=== PATIENT | male | born 1945 | race Caucasian/White ===

== ENCOUNTER → 2018-07-02 | Outpatient (CLI) | payer MEDICARE, OTHER ==
--- NOTE | 2018-07-02 13:01 | Diagnostic Imaging Report ---
INDICATION: Compression fracture. COMPARISON: None. FINDINGS: AP Spine L1-L4: [BMD (g/cm2): 1.191] [T-Score: -0.4] [Z-Score: 0.4] [BMD Previous: N/A] [BMD % Change: N/A] LT Hip Neck: [BMD (g/cm2): 0.617] [T-Score: -3.5] [Z-Score: -2.0] LT Hip Total: [BMD (g/cm2):0.597] [T-Score:-3.5] [Z-Score: -2.5] [BMD Previous: N/A] [BMD % Change: N/A] RT Hip Neck: [BMD (g/cm2):0.577] [T-Score:-3.8] [Z-Score:-2.3] RT Hip Total: [BMD (g/cm2):0.581] [T-score:-3.6] [Z-Score:-2.6] [BMD Previous:N/A] [BMD % Change:N/A] *Indicates significant change from prior examination based on 95% confidence level. World Health Organization criteria for BMD interpretation classify patients as Normal (T-score at or above -1.0), Osteopenic (T-score between -1.0 and -2.5) or Osteoporotic (T-score at or below -2.5). LIMITATIONS AND MODIFICATION: None. FRACTURE RISK (FRAX SCORE): The ten year probability of (%): Major Osteoporotic Fracture: [24.6] Hip Fracture: [13.0] IMPRESSION: 1. Osteoporosis. 2. Baseline examination. 3. See below National Osteoporosis Foundation guidelines on when to potentially initiate pharmacologic therapy. Based on the National Osteoporosis Foundation Guidelines, pharmacologic treatment should be initiated in any of the following, unless clinical conditions suggest otherwise: * Any patient with prior fragility fracture of the hip or vertebrae. A spine fracture indicates 5X risk for subsequent spine fracture and 2X risk for subsequent hip fracture. * Osteoporosis (T-score <-2.5). * Postmenopausal women and men age 50 and older with low bone mass/osteopenia (T-score between -1.0 and -2.5) by DXA and 10-year major osteoporotic fracture greater than 20% or a 10-year probability of hip fracture greater than 3%. These fracture risks are supplied above in the FRAX score, if applicable. * Clinician judgment and/or patient preferences may indicate treatment for people with 10-year fracture probabilities above or below these levels. Dictated by: Dictated on workstation # [id number]
== END ==
LOC: EDUNIT# 11:30 → RAD 11:58
PROVIDERS: ATTEND Family Medicine
DX: M81.0 Age-related osteoporosis without current pathological fracture (principal); M48.50XA Collapsed vertebra, not elsewhere classified, site unspecified, initial encounter for fracture; N18.1 Chronic kidney disease, stage 1
CPT/HCPCS: 77080

== ENCOUNTER 2020-04-10 22:28 | Emergency (ER) | payer MEDICARE, OTHER ==
[~2020-04-10] VITALS: Ht 175.2 cm; Wt 81.6 kg
--- NOTE | 2020-04-10 22:37 | ED Dyspnea ---
General Stated Complaint: SOB/CHEST PAIN History of Present Illness Date Seen by Provider: Apr 10, 2020 Time Seen by Provider: 22:37 Initial Comments 74-year-old male presents with chest pressure and shortness of breath. Patient reports around 3:30 or so he took a bath and sensitivities had some chest pressure. He says some increasing dyspnea especially when laying flat or with exertion. He reports that he's had some increased lower extremity edema and has taken, but extra Lasix but hasn't helped much. Patient reports some chest pressure as substernal. He denies any cough, fevers or chills. Reports that the symptoms worsen throughout the afternoon and evening when he tried to lay down shortness breath got quite a bit worse. He sees a gynecological assistant for high blood pressure in [place]. Allergies and Home Medications Allergies Coded Allergies: minoxidil (Verified Allergy, Unknown, 04/10/20) Patient Home Medication List Home Medication List Reviewed: Yes Review of Systems Review of Systems Constitutional: No chills, No fever EENTM: no symptoms reported Respiratory: No cough; dyspnea on exertion, orthopnea, short of breath; No wheezing Cardiovascular: chest pain, edema Gastrointestinal: No abdominal pain, No diarrhea, No nausea, No vomiting Musculoskeletal: no symptoms reported Skin: no symptoms reported Psychiatric/Neurological: No Symptoms Reported Endocrine: No Symptoms Reported Past Spxsble-Yljnpa-Oqfqep Hx Past Med/Social Hx: Reviewed Nursing Past Med/Soc Hx Patient Social History Recent Foreign Travel: No Contact w/Someone Who Travel: No Physical Exam Vital Signs Vital Signs - First Documented Capillary Refill : Height, Weight, BMI Height: '" Weight: lbs. oz. kg; BMI Method: General Appearance: Mild Distress Respiratory: No Accessory Muscle Use, No Respiratory Distress, Decreased Breath Sounds, Other (mild tachypnea) Cardiovascular: Regular Rate, Rhythm, Normal Peripheral Pulses Peripheral Pulses: 2+ Radial Pulses (R), 2+ Radial Pulses (L) Gastrointestinal: Non Tender, Soft Extremity: Normal Capillary Refill, Pedal Edema (2+ bilateral) Neurologic/Psychiatric: Alert, Oriented x3, No Motor/Sensory Deficits, Normal Mood/Affect, plasterer helper II-XII Norm as Tested Skin: Normal Color, Warm/Dry Focused Exam Lactate Level 04/10/20 23:20: Lactic Acid Level 0.95 Lactic Acid Level Laboratory Tests Test 04/10/20 23:20 Lactic Acid Level 0.95 MMOL/L (0.50-2.00) Progress/Results/Core Measures Results/Orders Lab Results Laboratory Tests Test 04/10/20 22:28 04/10/20 23:20 04/11/20 00:18 Range/Units White Blood Count 20.4 H 4.3-11.0 10^3/uL Red Blood Count 3.16 L 4.35-5.85 10^6/uL Hemoglobin 9.9 L 13.3-17.7 G/DL Hematocrit 28 L 40-54 % Mean Corpuscular Volume 90 80-99 FL Mean Corpuscular Hemoglobin 31 25-34 PG Mean Corpuscular Hemoglobin Concent 35 32-36 G/DL Red Cell Distribution Width 11.8 10.0-14.5 % Platelet Count 265 130-400 10^3/uL Mean Platelet Volume 10.7 H 7.4-10.4 FL Immature Granulocyte % (Auto) 0 % Neutrophils (%) (Auto) 91 H 42-75 % Lymphocytes (%) (Auto) 5 L 12-44 % Monocytes (%) (Auto) 4 0-12 % Eosinophils (%) (Auto) 0 0-10 % Basophils (%) (Auto) 0 0-10 % Neutrophils # (Auto) 18.5 H 1.8-7.8 X 10^3 Lymphocytes # (Auto) 0.9 L 1.0-4.0 X 10^3 Monocytes # (Auto) 0.8 0.0-1.0 X 10^3 Eosinophils # (Auto) 0.0 0.0-0.3 10^3/uL Basophils # (Auto) 0.0 0.0-0.1 10^3/uL Immature Granulocyte # (Auto) 0.1 0.0-0.1 10^3/uL Neutrophils % (Manual) 91 % Lymphocytes % (Manual) 7 % Monocytes % (Manual) 2 % Sodium Level 123 *L 135-145 MMOL/L Potassium Level 4.9 3.6-5.0 MMOL/L Chloride Level 91 L 98-107 MMOL/L Carbon Dioxide Level 16 L 21-32 MMOL/L Anion Gap 16 H 5-14 MMOL/L Blood Urea Nitrogen 68 H 7-18 MG/DL Creatinine 3.66 H 0.60-1.30 MG/DL Estimat Glomerular Filtration Rate 16 BUN/Creatinine Ratio 19 Glucose Level 388 H 70-105 MG/DL Calcium Level 9.1 8.5-10.1 MG/DL Corrected Calcium 9.7 8.5-10.1 MG/DL Magnesium Level 1.5 L 1.6-2.4 MG/DL Total Bilirubin 0.5 0.1-1.0 MG/DL Aspartate Amino Transf (AST/SGOT) 35 H 5-34 U/L Alanine Aminotransferase (ALT/SGPT) 32 0-55 U/L Alkaline Phosphatase 148 H 40-136 U/L Troponin I < 0.30 <0.30 NG/ML C-Reactive Protein 0.13 <0.50 MG/DL Pro-B-Type Natriuretic Peptide 4471.0 H <75.0 PG/ML Total Protein 6.5 6.4-8.2 GM/DL Albumin 3.3 3.2-4.5 GM/DL Lactic Acid Level 0.95 0.50-2.00 MMOL/L Urine Color YELLOW Urine Clarity CLOUDY Urine pH 5.5 5-9 Urine Specific [place] 1.020 1.016-1.022 Urine Protein 2+ H NEGATIVE Urine Glucose (UA) 1+ H NEGATIVE Urine Ketones NEGATIVE NEGATIVE Urine Nitrite NEGATIVE NEGATIVE Urine Bilirubin NEGATIVE NEGATIVE Urine Urobilinogen 0.2 < = 1.0 MG/DL Urine Leukocyte Esterase NEGATIVE NEGATIVE Urine RBC (Auto) 1+ H NEGATIVE Urine RBC 0-2 /HPF Urine WBC 10-25 H /HPF Urine Crystals PRESENT H /LPF Urine Amorphous Sediment LARGE SHEELA URATES H /LPF Urine Bacteria FEW H /HPF Urine Casts NONE /LPF Urine Mucus NEGATIVE /LPF Urine Culture Indicated YES My Orders Orders - SANCHEZ,CATIE L DO Chest 1 View Ap/Pa Only (04/10/20 22:37) Cbc With Automated Diff (04/10/20 22:37) Comprehensive Metabolic Panel (04/10/20 22:37) Magnesium (04/10/20 22:37) Probnp Fs (04/10/20 22:37) Crp Fs (04/10/20 22:37) Ekg Tracing (04/10/20 22:37) O2 (04/10/20 22:37) Monitor-Rhythm Ecg Trace Only (04/10/20 22:37) Nitroglycerin 0.4 Mg Btl 25's (Nitrostat (04/10/20 23:00) Aspirin Chewable Tablet (Baby Aspirin Ch (04/10/20 23:00) Furosemide Injection (Lasix Injection) (04/10/20 23:00) Manual Differential (04/10/20 22:10) Blood Culture (04/10/20 23:09) Lactic Acid Analyzer (04/10/20 23:09) Ceftriaxone For Iv Use (Rocephin For I (04/10/20 23:30) Azithromycin Injection (Zithromax Inject (04/10/20 23:30) Ua Culture If Indicated (04/11/20 00:18) Troponin I Fs (04/11/20 00:26) Urine Culture (04/11/20 00:18) Medications Given in ED Current Medications Medications Dose Ordered Sig/Ariel Route Start Time Stop Time Status Last Admin Dose Admin Azithromycin 500 mg/Sodium Chloride 255 ml @ 250 mls/hr ONCE ONCE IV 04/10/20 23:30 04/11/20 00:31 DC 04/10/20 23:44 250 MLS/HR Ceftriaxone Sodium 1000 mg/ Sterile Water 10 ml @ 200 mls/hr ONCE ONCE IV 04/10/20 23:30 04/10/20 23:32 DC 04/10/20 23:44 200 MLS/HR Furosemide 40 mg ONCE ONCE IVP 04/10/20 23:00 04/10/20 23:01 DC 04/10/20 22:57 40 MG Nitroglycerin 0.4 mg UD PRN SL 04/10/20 23:00 04/10/20 22:57 0.4 MG Vital Signs/I&O 04/10/20 04/10/20 22:28 22:28 Temp 36.9 Pulse 100 Resp 28 B/P (MAP) 171/49 (89) Pulse Ox 94 94 O2 Delivery Nasal Cannula Nasal Cannula O2 Flow Rate 2.00 2.00 04/11/20 00:00 Intake Total 10 ml Balance 10 ml Progress Progress Note : Progress Note Patient with labs and x-rays are consistent with fluid overload. Patient chest pressure resolved with oxygen. His dyspnea resolved with nitroglycerin and Lasix. Patient was feeling significantly better after treatment. He is hyponatremic likely from fluid overload. Patient has an elevated white count, questionable urinary tract infection. I do not suspect pneumonia since his x-ray looks much more consistent with pulmonary edema. I did however treat him with Rocephin and azithromycin. Patient with a negative lactic acid. Patient with EKG shows no acute changes and initial troponin was negative. Patient symptoms were going on approximately 7 hours prior to arrival so that initial troponin would've been approximately 7 hours after symptoms started so unlikely an acute coronary syndrome. Patient did receive aspirin by EMS prior to arrival. Patient requests transfer to [facility] since this is where his gynecological assistant is. Patient was accepted and transferred in stable condition. Initial ECG Impression Date: Apr 10, 2020 Initial ECG Impression Time: 22:47 Initial ECG Rate: 76 Initial ECG Rhythm: Normal Sinus Initial ECG Impression: Nonspecific Changes Comment Sinus Rhythm, HR 76, LVH, no acute findings Departure Impression Primary Impression: Pulmonary edema Qualified Codes: J81.0 - Acute pulmonary edema Additional Impressions: Chronic kidney disease Qualified Codes: N18.9 - Chronic kidney disease, unspecified Hyponatremia with excess extracellular fluid volume Disposition: XFER [facility] Condition: Stable Transfer Transfer Reason: Patient preference Time Spoke to Accepting Phy: 00:20 Transfer Progress Notes Discussed with Dr Cristhian Rivera, who graciously accepted patient Transfer Facility: [facility] Method of Transfer: EMS Departure-Patient Inst. Referrals: JULIETTE ZAFAR MD (PCP/Family) Primary Care Physician CATIE SANCHEZ DO Apr 10, 2020 22:37
[2020-04-10 22:49] LABS: BASOPHILS % (AUTO) 0 % (0-10); EOSINOPHILS % (AUTO) 0 % (0-10); HEMATOCRIT 28 % (40-54); HEMOGLOBIN 9.9 G/DL (13.3-17.7); LYMPHOCYTES # (AUTO) 0.9 X 10^3 (1.0-4.0); LYMPHOCYTES % (AUTO) 5 % (12-44); MEAN CORPUSCULAR HEMOGLOBIN 31 PG (25-34); MEAN CORPUSCULAR HGB CONC 35 G/DL (32-36); MEAN CORPUSCULAR VOLUME 90 FL (80-99); MEAN PLATELET VOLUME 10.7 FL (7.4-10.4); MONOCYTES # (AUTO) 0.8 X 10^3 (0.0-1.0); MONOCYTES % (AUTO) 4 % (0-12); NEUTROPHILS # (AUTO) 18.5 X 10^3 (1.8-7.8); NEUTROPHILS % (AUTO) 91 % (42-75); PLATELET COUNT 265 10^3/uL (130-400); WHITE BLOOD COUNT 20.4 10^3/uL (4.3-11.0)
[2020-04-10] MEDS ORDERED: FUROSEMIDE 40 MG/4 ML INJ (LASIX) IVP ONE (23:00)
[2020-04-10] MEDS ORDERED: ASPIRIN 81 MG CHEW (CHILDREN'S ASA) PO ONE (23:00)
[2020-04-10] MEDS ORDERED: NITROGLYCERIN 0.4 MG SL TABS BTL 25'S SL PRN (23:00)
[2020-04-10 23:09] LABS: CREATININE SERUM 3.66 MG/DL (0.60-1.30); POTASSIUM 4.9 MMOL/L (3.6-5.0)
[2020-04-10 23:10] LABS: ALBUMIN 3.3 GM/DL (3.2-4.5); BILIRUBIN,TOTAL 0.5 MG/DL (0.1-1.0); CALCIUM 9.1 MG/DL (8.5-10.1); MAGNESIUM 1.5 MG/DL (1.6-2.4); TOTAL PROTEIN 6.5 GM/DL (6.4-8.2)
[2020-04-10 23:20] LABS: LYMPHOCYTES % (MANUAL) 7 %; MONOCYTES % (MANUAL) 2 %; NEUTROPHILS % (MANUAL) 91 %
[2020-04-10] MEDS ORDERED: cefTRIAXone FOR IV USE 1,000 MG in WATER (STERILE) FOR INJECTION 10 ML IV ONE (23:30)
[2020-04-10] MEDS ORDERED: AZITHROMYCIN INJECTION 500 MG in NS (IVPB) 250 ML IV ONE (23:30)
[2020-04-11 00:29] LABS: CLARITY,URINE CLOUDY; COLOR,URINE YELLOW
[2020-04-11 00:30] LABS: AMORPHOUS SEDIMENT,UR LARGE AMOR URATES /LPF; BACTERIA,URINE FEW /HPF; BILIRUBIN,URINE NEGATIVE (NEGATIVE); GLUCOSE, URINE (UA) 1+ (NEGATIVE); KETONES,URINE NEGATIVE (NEGATIVE); LEUKOCYTE ESTERASE ,URINE NEGATIVE (NEGATIVE); NITRITE,URINE NEGATIVE (NEGATIVE); PH,URINE 5.5 (5-9); PROTEIN,URINE 2+ (NEGATIVE); RBC,URINE 0-2 /HPF
[2020-04-11 02:10] VITALS: BP 157/57
--- NOTE | 2020-04-11 06:14 | Diagnostic Imaging Report ---
EXAMINATION: Portable AP chest at 1043 PM INDICATION: Dyspnea There are no prior studies available for comparison. The heart is enlarged and the central pulmonary vascularity is prominent. Most likely, there is an element of mild pulmonary congestion present. There are also faint alveolar/interstitial infiltrates in both lung bases. These could be secondary to pulmonary edema alone. The possibility that there is an element of pneumonia/atelectasis related to COVID-19 should also be considered. There is no significant pleural effusion identified. The mediastinum is not widened. The osseous structures are intact. IMPRESSION: There is cardiomegaly and pulmonary congestion. There may also be an element of pneumonia/atelectasis involving the lung bases. Clinical follow-up is recommended. Dictated by: Dictated on workstation # [id number]
== END 2020-04-11 02:22 | disposition short-term general hospital (02) ==
LOC: EDUNIT# 22:28 → ER FS 22:31
DX: J81.1 Chronic pulmonary edema (principal); N18.9 Chronic kidney disease, unspecified; E87.1 Hypo-osmolality and hyponatremia; Z88.8 Allergy status to other drugs, medicaments and biological substances
CPT/HCPCS: 36415; 71045; 80053; 81000; 83605; 83735; 83880; 84484; 85007; 85027; 86141; 87040; 87088; 93005; 93041

== ENCOUNTER → 2020-05-03 | Outpatient (CLI) | payer MEDICARE, OTHER ==
[2020-05-03 10:18] LABS: CREATININE SERUM 3.65 MG/DL (0.60-1.30)
[2020-05-03 10:19] LABS: ALBUMIN 3.5 GM/DL (3.2-4.5); BILIRUBIN,TOTAL 0.3 MG/DL (0.1-1.0); CALCIUM 8.8 MG/DL (8.5-10.1)
== END ==
LOC: LAB FS 09:40
PROVIDERS: ATTEND Family Medicine
DX: N18.30 Chronic kidney disease, stage 3 unspecified (principal)
CPT/HCPCS: 36415; 80053

== ENCOUNTER 2020-08-24 02:30 | Emergency (ER) | payer MEDICARE, OTHER ==
[~2020-08-24] VITALS: Ht 172.7 cm; Wt 74.8 kg
--- NOTE | 2020-08-24 02:39 | ED Dyspnea ---
General Chief Complaint: Respiratory Problems Stated Complaint: SOB History of Present Illness Date Seen by Provider: August 24, 2020 Time Seen by Provider: 02:35 Initial Comments 74-year-old male presents with shortness of breath. Patient is a dialysis p atient with known COPD. Patient reports he always has shortness of breath at night but tonight was a lot worse. When EMS arrived report he was very tight now air movement. He received an albuterol nebulizer in route and now is wheezing. Patient receives dialysis Sunday and Sunday. He reports no increased cough or fever. Patient is normally on oxygen at home. Allergies and Home Medications Allergies Coded Allergies: minoxidil (Verified Allergy, Unknown, 04/10/20) Patient Home Medication List Home Medication List Reviewed: Yes Review of Systems Review of Systems Constitutional: No chills, No fever Respiratory: dyspnea on exertion, short of breath Cardiovascular: No chest pain; edema; No palpitations Gastrointestinal: No abdominal pain, No nausea Skin: no symptoms reported Psychiatric/Neurological: No Symptoms Reported Past Ebdcevn-Wddrdk-Hyzydw Hx Past Med/Social Hx: Reviewed Nursing Past Med/Soc Hx Past Medical History Surgeries: No Respiratory: No Cardiac: Yes Hypertension Neurological: No Genitourinary: Yes Renal Failure Gastrointestinal: No Musculoskeletal: No Endocrine: Yes Diabetes, Non-Insulin dep HEENT: No Cancer: No Psychosocial: No Integumentary: No Physical Exam Vital Signs Vital Signs - First Documented 08/24/20 02:33 Temp 35.8 Pulse 68 Resp 25 B/P (MAP) 177/134 (148) O2 Delivery OxyMask O2 Flow Rate 10.00 Capillary Refill : Height, Weight, BMI Height: '" Weight: lbs. oz. kg; 26.00 BMI Method: General Appearance: Mild Distress Neck: Non Tender, Supple Respiratory: Decreased Breath Sounds, Wheezing (Left side), Other (Mild tac hypneic) Cardiovascular: Regular Rate, Rhythm, No Edema Gastrointestinal: Non Tender, Soft Extremity: Normal Capillary Refill Neurologic/Psychiatric: Alert, Oriented x3 Skin: Normal Color, Warm/Dry Progress/Results/Core Measures Results/Orders Lab Results Laboratory Tests Test 08/24/20 02:30 08/24/20 04:25 Range/Units White Blood Count 14.0 H 4.3-11.0 10^3/uL Red Blood Count 3.54 L 4.35-5.85 10^6/uL Hemoglobin 10.9 L 13.3-17.7 G/DL Hematocrit 33 L 40-54 % Mean Corpuscular Volume 92 80-99 FL Mean Corpuscular Hemoglobin 31 25-34 PG Mean Corpuscular Hemoglobin Concent 33 32-36 G/DL Red Cell Distribution Width 12.6 10.0-14.5 % Platelet Count 362 130-400 10^3/uL Mean Platelet Volume 10.9 H 7.4-10.4 FL Immature Granulocyte % (Auto) 0 % Neutrophils (%) (Auto) 50 42-75 % Lymphocytes (%) (Auto) 38 12-44 % Monocytes (%) (Auto) 10 0-12 % Eosinophils (%) (Auto) 1 0-10 % Basophils (%) (Auto) 0 0-10 % Neutrophils # (Auto) 7.0 1.8-7.8 X 10^3 Lymphocytes # (Auto) 5.3 H 1.0-4.0 X 10^3 Monocytes # (Auto) 1.4 H 0.0-1.0 X 10^3 Eosinophils # (Auto) 0.2 0.0-0.3 10^3/uL Basophils # (Auto) 0.1 0.0-0.1 10^3/uL Immature Granulocyte # (Auto) 0.0 0.0-0.1 10^3/uL Neutrophils % (Manual) 56 % Lymphocytes % (Manual) 29 % Monocytes % (Manual) 14 % Eosinophils % (Manual) 0 % Basophils % (Manual) 1 % Band Neutrophils 0 % Sodium Level 128 L 135-145 MMOL/L Potassium Level 3.6 3.6-5.0 MMOL/L Chloride Level 91 L 98-107 MMOL/L Carbon Dioxide Level 28 21-32 MMOL/L Anion Gap 9 5-14 MMOL/L Blood Urea Nitrogen 39 H 7-18 MG/DL Creatinine 3.46 H 0.60-1.30 MG/DL Estimat Glomerular Filtration Rate 17 BUN/Creatinine Ratio 11 Glucose Level 173 H 70-105 MG/DL Calcium Level 9.4 8.5-10.1 MG/DL Magnesium Level 1.7 1.6-2.4 MG/DL Pro-B-Type Natriuretic Peptide > 21014.0 H <75.0 PG/ML Blood Gas Puncture Site RT RADIAL Blood Gas Patient Temperature 35.3 Arterial Blood pH 7.37 7.37-7.43 Arterial Blood Partial Pressure CO2 48 H 35-45 MMHG Arterial Blood Partial Pressure O2 70 L 79-93 MMHG Arterial Blood HCO3 28 H 23-27 MMOL/L Arterial Blood Total CO2 29.2 21.0-31.0 MMOL/L Arterial Blood Oxygen Saturation 93 L 94-100 % Arterial Blood Base Excess 1.8 -2.5-2.5 MMOL/L Bruno Test OK Blood Gas Ventilator Setting NO Blood Gas Inspired Oxygen 35% My Orders Orders - SANCHEZ,CATIE L DO Albuterol/Ipra Inhalation Soln (Duoneb I (08/24/20 02:45) Svn Small Volume Nebulizer (08/24/20 02:33) Chest 1 View Ap/Pa Only (08/24/20 02:33) Basic Metabolic Panel (08/24/20 02:33) Cbc With Automated Diff (08/24/20 02:33) Magnesium (08/24/20 02:33) Probnp Fs (08/24/20 02:33) Furosemide Injection (Lasix Injection) (08/24/20 02:45) Bipap (Bilevel) Set Up (08/24/20 03:19) Manual Differential (08/24/20 02:30) Arterial Blood Gas (08/24/20 04:20) Medications Given in ED Current Medications Medications Dose Ordered Sig/Ariel Route Start Time Stop Time Status Last Admin Dose Admin Albuterol/ Ipratropium 3 ml ONCE ONCE INH 08/24/20 02:45 08/24/20 02:47 DC 08/24/20 02:44 3 ML Furosemide 40 mg ONCE ONCE IVP 08/24/20 02:45 08/24/20 02:47 DC 08/24/20 02:44 40 MG Vital Signs/I&O 08/24/20 02:33 Temp 35.8 Pulse 68 Resp 25 B/P (MAP) 177/134 (148) O2 Delivery OxyMask O2 Flow Rate 10.00 Progress Progress Note : Progress Note Patient with bilateral pulmonary edema. Patient symptoms improved significantly with breathing treatments, BiPAP and Lasix. Patient is a dialysis patient with admission needs. Patient to be transferred to [facility] for further inpatient treatment and dialysis. Patient was stable upon transfer Diagnostic Imaging Diagonstic Imaging: Xray Plain Films/CT/US/NM/MRI: chest Comments bilateral pulm edema Departure Impression Primary Impression: Pulmonary edema Qualified Codes: J81.0 - Acute pulmonary edema Additional Impressions: Hyponatremia with excess extracellular fluid volume Dialysis patient Disposition: 02 [facility]FER [facility] Condition: Stable Transfer Transfer Reason: Exceeds level of care Time Spoke to Accepting Phy: 04:20 Transfer Progress Notes pt accepted to [facility] by Dr Cheng Transfer Facility: [facility] Method of Transfer: EMS Departure-Patient Inst. Referrals: JULIETTE ZAFAR MD (PCP/Family) Primary Care Physician CATIE SANCHEZ DO August 24, 2020 02:39
[2020-08-24] MEDS ORDERED: FUROSEMIDE 40 MG/4 ML INJ (LASIX) IVP ONE (02:45)
[2020-08-24] MEDS ORDERED: RT-ALBUTEROL/IPRATROPIUM 3 ML (DUONEB) VIAL INH ONE (02:45)
[2020-08-24 03:22] LABS: BASOPHILS % (AUTO) 0 % (0-10); EOSINOPHILS % (AUTO) 1 % (0-10); HEMATOCRIT 33 % (40-54); HEMOGLOBIN 10.9 G/DL (13.3-17.7); LYMPHOCYTES % (AUTO) 38 % (12-44); MEAN CORPUSCULAR HEMOGLOBIN 31 PG (25-34); MEAN CORPUSCULAR HGB CONC 33 G/DL (32-36); MEAN CORPUSCULAR VOLUME 92 FL (80-99); MEAN PLATELET VOLUME 10.9 FL (7.4-10.4); MONOCYTES % (AUTO) 10 % (0-12); NEUTROPHILS % (AUTO) 50 % (42-75); PLATELET COUNT 362 10^3/uL (130-400)
[2020-08-24 03:23] LABS: BASOPHILS # (AUTO) 0.1 10^3/uL (0.0-0.1); EOSINOPHILS # (AUTO) 0.2 10^3/uL (0.0-0.3); LYMPHOCYTES # (AUTO) 5.3 X 10^3 (1.0-4.0); MONOCYTES # (AUTO) 1.4 X 10^3 (0.0-1.0)
[2020-08-24 03:36] LABS: BAND NEUTROPHILS 0 %; BASOPHILS % (MANUAL) 1 %; EOSINOPHILS % (MANUAL) 0 %; LYMPHOCYTES % (MANUAL) 29 %; MONOCYTES % (MANUAL) 14 %; NEUTROPHILS % (MANUAL) 56 %
[2020-08-24 03:43] LABS: BUN/CREATININE RATIO 11; CARBON DIOXIDE 28 MMOL/L (21-32); CHLORIDE 91 MMOL/L (98-107); CREATININE SERUM 3.46 MG/DL (0.60-1.30); GFR ESTIMATED 17; POTASSIUM 3.6 MMOL/L (3.6-5.0); SODIUM 128 MMOL/L (135-145)
[2020-08-24 03:44] LABS: CALCIUM 9.4 MG/DL (8.5-10.1); GLUCOSE 173 MG/DL (70-105); MAGNESIUM 1.7 MG/DL (1.6-2.4)
[2020-08-24 04:52] LABS: ABG BASE EXCESS 1.8 MMOL/L (-2.5-2.5); ABG OXYGEN SATURATION 93 % (94-100); ABG PCO2 48 MMHG (35-45); ABG PH 7.37 (7.37-7.43); ABG PO2 70 MMHG (79-93); ABG TCO2 29.2 MMOL/L (21.0-31.0)
[2020-08-24 04:53] LABS: ALLENS TEST OK
[2020-08-24 04:54] LABS: INSPIRED O2 35%; PATIENT TEMP 35.3; VENTILATOR NO
[2020-08-24 06:08] VITALS: BP 161/59
--- NOTE | 2020-08-24 06:12 | Diagnostic Imaging Report ---
CHEST 1 VIEW AP/PA ONLY Indication: Wheezing and shortness of breath Comparison: 04/10/2020 Findings: Ill-defined hazy opacities are present in bilateral perihilar region. Interlobular septal thickening is also noted. Small right pleural effusion. Cardiomegaly. Right IJ dual-lumen hemodialysis catheter has tip terminating in the upper right atrium. Impression: 1. Pulmonary edema with small right pleural effusion. Dictated by: Dictated on workstation # [id number]
== END 2020-08-24 06:08 | disposition short-term general hospital (02) ==
LOC: EDUNIT# 02:30 → ER FS 02:32
DX: J81.1 Chronic pulmonary edema (principal); E87.1 Hypo-osmolality and hyponatremia; I10 Essential (primary) hypertension; E11.9 Type 2 diabetes mellitus without complications; Z91.15 Patient's noncompliance with renal dialysis; Z88.8 Allergy status to other drugs, medicaments and biological substances
CPT/HCPCS: 36415; 71045; 80048; 82805; 83735; 83880; 85007; 85027; 99291

== ENCOUNTER → 2022-01-05 | Outpatient (CLI) | payer MEDICARE, OTHER ==
--- NOTE | 2022-01-05 14:29 | Diagnostic Imaging Report ---
PROCEDURE: CT abdomen without contrast. TECHNIQUE: Multiple contiguous axial images were obtained through the abdomen without the use of intravenous contrast. Auto Exposure Controls were utilized during the CT exam to meet ALARA standards for radiation dose reduction. INDICATION: Adrenal mass seen on previous MRI. COMPARISON: Prior MRI is not available for review. FINDINGS: Included portions of the lung bases show chronic appearing background interstitial changes. CT ABDOMEN: Right adrenal mass is identified and measures 3.7 x 2.8 cm. There are areas of macroscopic fat interspersed with areas of more relative prominent hyperdensity. There is no prior available for comparison. Left adrenal gland has a normal CT appearance. Multiple hypodensities of the bilateral kidneys are noted consistent with probable hypodense cysts. There is also a hyperdensity on the right that measures 2.7 cm in diameter. This is otherwise incompletely characterized on this noncontrast only exam. Liver demonstrates subtle macronodular appearance to its external contour suggestive of cirrhosis. Spleen is also borderline prominent in size. It measures 10.4 x 7.2 x 12.2 cm. There is also a small amount of ascites within the abdomen. No loculated fluid collection or free air is seen. Pancreas has an unremarkable noncontrast CT appearance. Multiple gallstones are noted. Included small bowel loops are nondistended. Cecal bascule is noted. Normal appendix is identified. Indwelling subcutaneous catheter is identified anteriorly. Note is also made of advanced diffuse calcified aortic and arterial atherosclerosis. Osseous structures show no acute abnormalities. IMPRESSION: 1. Right adrenal mass is identified. Imaging features favor benign myolipoma. Collision tumor is also a consideration, but felt to be less likely. 2. Small amount of ascites. This may relate to indwelling peritoneal dialysis catheter. There does appear to be some component of cirrhosis and borderline splenomegaly suggestive of underlying portal venous hypertension. 3. Cholelithiasis. 4. Probable hemorrhagic right renal cyst. Further catheterization with dedicated renal sonogram is advised. 5. Other nonemergent findings, as detailed above. Dictated by: Dictated on workstation # [id number]
== END ==
LOC: RAD FS 10:51
PROVIDERS: ATTEND Family Medicine
DX: E27.8 Other specified disorders of adrenal gland (principal); K80.20 Calculus of gallbladder without cholecystitis without obstruction
CPT/HCPCS: 74150

== ENCOUNTER → 2022-02-09 | Outpatient (CLI) | payer MEDICARE, OTHER ==
--- NOTE | 2022-02-09 17:14 | Diagnostic Imaging Report ---
EXAMINATION: Right hip radiograph EXAM DATE: 02/09/2022 4:26 PM COMPARISON: None available. HISTORY: R HIP PAIN, S/P FALL TECHNIQUE: 2 views FINDINGS: There is no acute fracture, dislocation, or destructive osseous process. The joint spaces are normal. The soft tissues are normal. Vascular calcifications are present. IMPRESSION: 1. No acute osseous abnormality. Dictated by: Dictated on workstation # [id number]
== END ==
LOC: RAD FS 16:03
PROVIDERS: ATTEND Family Medicine
DX: M25.551 Pain in right hip (principal); W19.XXXA Unspecified fall, initial encounter
CPT/HCPCS: 73502

== ENCOUNTER 2022-10-18 05:39 | Outpatient (CLI) | payer MEDICARE, OTHER ==
[~2022-10-18] VITALS: Ht 170.2 cm; Wt 68.0 kg
[2022-10-18] MEDS ORDERED: CALC0.253 PO (10:59)
[2022-10-18] MEDS ORDERED: METO2.5T PO (10:59)
[2022-10-18] MEDS ORDERED: FLUT15.845 NS (10:59)
[2022-10-18] MEDS ORDERED: UBID100C44 PO (10:59)
[2022-10-18] MEDS ORDERED: GLIP10TA13 PO (10:59)
[2022-10-18] MEDS ORDERED: SAW500CA10 PO (10:59)
[2022-10-18] MEDS ORDERED: MAGN400C3 PO (10:59)
[2022-10-18] MEDS ORDERED: ATOR20TA66 PO (10:59)
[2022-10-18] MEDS ORDERED: TORS20TA3 PO (10:59)
[2022-10-18] MEDS ORDERED: TMSL.4C PO (10:59)
[2022-10-18] MEDS ORDERED: HYDR-3820 PO (10:59)
[2022-10-18] MEDS ORDERED: OMEP20CA18 PO (10:59)
[2022-10-18] MEDS ORDERED: FLAX10004 PO (10:59)
[2022-10-18] MEDS ORDERED: NIFE90TA57 PO (10:59)
== END 2022-10-18 11:04 | disposition home or self-care (01) ==
LOC: PREOP 05:39
PROVIDERS: ATTEND Surgery
DX: Z01.818 Encounter for other preprocedural examination (principal); K21.9 Gastro-esophageal reflux disease without esophagitis

== ENCOUNTER 2022-10-26 10:40 | Day surgery (SDC) | payer MEDICARE, OTHER ==
[~2022-10-26] VITALS: Ht 170.2 cm; Wt 68.0 kg
[~2022-10-26 10:40] MED LIST: ATOR20TA66 PO; CALC0.253 PO; FLAX10004 PO; FLUT15.845 NS; GLIP10TA13 PO; HYDR-3820 PO; MAGN400C3 PO; METO2.5T PO; NIFE90TA57 PO; OMEP20CA18 PO; SAW500CA10 PO; TMSL.4C PO; TORS20TA3 PO; UBID100C44 PO
[2022-10-26] MEDS ORDERED: LACTATED RINGERS 1,000 ML IV STA (10:55)
[2022-10-26] MEDS ORDERED: HURRICAINE EXT TUBE (BENZOCAINE) XX PRN (11:00)
[2022-10-26 11:05] VITALS: BP 183/77
--- NOTE | 2022-10-26 14:26 | Progress Note-Pre Operative ---
Pre-Operative Progress Note Date H&P Reviewed: Oct 26, 2022 Time H&P Reviewed: 14:26 History & Physical: H&P Reviewed, Patient Examed, No changes noted Pre-Operative Diagnosis: gerd OTILIA GARZON DO Oct 26, 2022 14:26
[2022-10-26] MEDS ORDERED: proPOfol 200 MG/20 ML (DIPRIVAN) VIAL IV ONE (14:44)
[2022-10-26 15:00] VITALS: BP 168/81
[2022-10-26] MEDS ORDERED: PANT40TA2 PO (15:02)
--- NOTE | 2022-10-26 15:02 | Discharge Inst-Simple/Standard ---
Discharge Inst-Standard Discharge Medications New, Converted or Re-Newed RX: Transmitted to Pharmacy Patient Instructions/Follow Up Plan of Care/Instructions/FU: 2 weeks Joe Activity as Tolerated: Yes Discharge Diet: Regular Diet (gastritis diet) OTILIA GARZON DO Oct 26, 2022 15:02
[2022-10-26 15:05] VITALS: BP 168/74
--- NOTE | 2022-10-26 15:23 | Anesthesia-General Post-Op ---
MAC Patient Condition Mental Status/LOC: Same as Preop Cardiovascular: Satisfactory Nausea/Vomiting: Absent Respiratory: Satisfactory Pain: Controlled Complications: Absent Post Op Complications Complications None Follow Up Care/Instructions Patient Instructions None needed. Anesthesiology Discharge Order Discharge Order Patient was doing well after the procedure with no complaints, stable vital signs, no apparent adverse anesthesia problems. No complications reported per nursing. CHERRY HERNANDEZ DO Oct 26, 2022 15:23
[2022-10-26 15:50] VITALS: BP 183/80
--- NOTE | 2022-10-27 00:39 | OPERATIVE REPORT ---
DATE OF SERVICE: 10/26/2022 PREOPERATIVE DIAGNOSIS: Gastroesophageal reflux disease. POSTOPERATIVE DIAGNOSIS: Gastritis. PROCEDURES: EGD with biopsies. SURGEON: Otilia Diaz DO ANESTHESIA: Per MDA. ESTIMATED BLOOD LOSS: None. COMPLICATIONS: None. INDICATIONS: The patient is a 77-year-old male who having GERD symptoms. He understands risks and benefits of procedure and wished to proceed. Consent was signed in chart. DESCRIPTION OF PROCEDURE: The patient was taken to endoscopy suite, placed in left lateral recumbent position. Timeout was performed. Scope was inserted in the mouth, down the esophagus, stomach, into the duodenum without difficulty. No polyps, masses or ulcerations in the duodenum. Scope was slowly retracted back into stomach where it was further insufflated. Gastritis appearance of the antrum present. Biopsies were obtained. Scope was retroflexed noting no other pathology. Scope was returned to its normal position, slowly withdrawn until distal esophagus. Biopsy GE junction was obtained. No polyps, masses or ulcerations. Scope was then slowly retracted back until completely removed. The patient tolerated the procedure well, no complications, taken to recovery room in stable condition. RECOMMENDATIONS: The patient will stop omeprazole and start on Protonix 40 mg daily. Await biopsy results for further recommendations: The patient will follow up in 2 weeks. Any issues before that, be seen at that time. Job ID: [id number] DocumentID: [id number] Dictated Date: 10/26/2022 22:37:05 [place] Date: 10/27/2022 00:38:00 Dictated By: OTILIA DIAZ DO
== END 2022-10-26 16:35 | disposition home or self-care (01) ==
LOC: ENDO 10:40
PROVIDERS: ATTEND Surgery
DX: K21.9 Gastro-esophageal reflux disease without esophagitis (principal); K29.70 Gastritis, unspecified, without bleeding; K31.89 Other diseases of stomach and duodenum; N18.6 End stage renal disease; E11.22 Type 2 diabetes mellitus with diabetic chronic kidney disease; Z87.891 Personal history of nicotine dependence; Z99.2 Dependence on renal dialysis; Z79.84 Long term (current) use of oral hypoglycemic drugs
CPT/HCPCS: 82947

== ENCOUNTER → 2022-11-20 | Outpatient (CLI) | payer MEDICARE, OTHER ==
[~2022-11-20] MED LIST changes: +PANT40TA2 PO
--- NOTE | 2022-11-20 11:57 | Diagnostic Imaging Report ---
INDICATION: Dysphagia. The procedure was performed in conjunction with speech pathology. Video fluoroscopy was performed during the swallowing of barium in multiple consistencies. A total of 46 seconds of fluoroscopic time was utilized. Reference air Kerma is 1.4 mGy. Patient ingested thin barium as well as applesauce, banana and cracker consistency. There is normal epiglottic tilt and laryngeal elevation. No laryngeal penetration or aspiration was observed. There is some mild vallecular residue with multiple consistencies which did clear after a 2nd swallow. IMPRESSION: Mild vallecular residue. The study is otherwise unremarkable. Dictated by: Dictated on workstation # [id number]
== END ==
LOC: RAD 10:26
PROVIDERS: ATTEND Nurse Practitioner
DX: R13.10 Dysphagia, unspecified (principal)
CPT/HCPCS: 74230

== ENCOUNTER 2022-12-22 11:51 | Emergency (ER) | payer MEDICARE, OTHER ==
[~2022-12-22] VITALS: Ht 172.7 cm; Wt 66.7 kg
--- NOTE | 2022-12-22 12:03 | ED General ---
General Chief Complaint: General Problems/Pain Stated Complaint: GEN WEAKNESS; SOB; RT ARM PAIN History of Present Illness Date Seen by Provider: Dec 22, 2022 Time Seen by Provider: 12:02 Initial Comments 77-year-old male presents with generalized weakness, chronic shortness of breath with increased cough. Patient also complains of chronic right arm pain. Patient is here mainly because he has a new cough that started last night and today. Patient was recently on some antibiotics and steroids. He has a history of CHF and COPD. No fevers or chills. Allergies and Home Medications Allergies Coded Allergies: amlodipine (Unverified Allergy, Severe, Edema, 10/18/22) hydralazine (Unverified Allergy, Intermediate, Vomiting, 10/18/22) minoxidil (Verified Allergy, Unknown, 04/10/20) clonidine (Unverified Adverse Reaction, Mild, Fatigue, 10/18/22) Patient Home Medication List Home Medication List Reviewed: Yes Atorvastatin Calcium (Atorvastatin Calcium) 20 Mg Tablet, 20 MG PO HS, (Reported) Entered as Reported by: ARACELI RIVAS on 10/18/22 1059 Benzonatate (Tessalon Perles) 100 Mg Capsule, 100 MG PO TID PRN for COUGH Prescribed by: CATIE SANCHEZ on 12/22/22 1303 Calcitriol (Calcitriol) 0.25 Mcg Capsule, 0.25 MCG PO DAILY, (Reported) Entered as Reported by: ARACELI RIVAS on 10/18/22 1059 Flaxseed Oil (Flaxseed Oil) 1,000 Mg Capsule, 1,000 MG PO DAILY, (Reported) Entered as Reported by: ARACELI RIVAS on 10/18/22 1059 Fluticasone Propionate (Fluticasone Propionate) 50 Mcg/Actuation [place].susp, 15.8 ML NS DAILY, (Reported) Entered as Reported by: ARACELI RIVAS on 10/18/22 1059 Glipizide (Glipizide) 10 Mg Tablet, 10 MG PO DAILY, (Reported) Entered as Reported by: ARACELI RIVAS on 10/18/22 1059 Hydrocodone/Acetaminophen (Hydrocodone-Acetamin 10-325 mg) 10 Mg-325 Mg Tablet, 1 EACH PO PRN PRN for PAIN, (Reported) Entered as Reported by: ARACELI RIVAS on 10/18/22 1059 Magnesium Oxide,Aspartate,Citr (Triple Magnesium Complex) 400 Mg Magnesium Capsule, 400 MG PO DAILY, (Reported) Entered as Reported by: ARACELI RIVAS on 10/18/22 1059 Metolazone (Metolazone) 2.5 Mg Tablet, 2.5 MG PO PRN, (Reported) Entered as Reported by: ARACELI RIVAS on 10/18/22 1059 Nifedipine (Nifedipine ER) 90 Mg Tab.er.24, 90 MG PO DAILY, (Reported) Entered as Reported by: ARACELI RIVAS on 10/18/22 105 Pantoprazole Sodium (Protonix) 40 Mg Tablet.dr, 40 MG PO DAILY Prescribed by: OTILIA GARZON on 10/26/22 1502 [place] (Saw [place]) 500 Mg Capsule, 500 MG PO BID, (Reported) Entered as Reported by: ARACELI RIVAS on 10/18/22 1059 Tamsulosin HCl (Flomax) 0.4 Mg Cap, 0.4 MG PO DAILY, (Reported) Entered as Reported by: ARACELI RIVAS on 10/18/22 105 Torsemide (Torsemide) 20 Mg Tablet, 20 MG PO DAILY, (Reported) Entered as Reported by: ARACELI RIVAS on 10/18/22 105 Ubidecarenone (Co Q-10) 100 Mg Capsule, 100 MG PO DAILY, (Reported) Entered as Reported by: ARACELI RIVAS on 10/18/22 1059 Review of Systems Review of Systems Constitutional: No chills, No fever; malaise, weakness Respiratory: cough, short of breath (chronic ) Cardiovascular: No chest pain; edema (chronic ); No palpitations Gastrointestinal: No abdominal pain, No nausea, No vomiting Musculoskeletal: other (chronic right arm pain and swelling ) Skin: no symptoms reported Psychiatric/Neurological: No Symptoms Reported Hematologic/Lymphatic: No Symptoms Reported Past Wxszcvu-Tfeyoo-Jqkuee Hx Seasonal Allergies Seasonal Allergies: No Past Medical History Surgeries: Yes (RENAL ARTERY STENT, DIALYSIS PORT INSERTION) Dialysis, Renal Respiratory: Yes COPD Cardiac: Yes Hypertension Neurological: No Genitourinary: Yes Renal Failure, Dialysis Gastrointestinal: No Musculoskeletal: No Endocrine: Yes Diabetes, Non-Insulin dep HEENT: No Cancer: No Psychosocial: No Integumentary: No Physical Exam Vital Signs Vital Signs - First Documented 12/22/22 11:56 Temp 36.9 Pulse 90 Resp 18 B/P (MAP) 140/66 (90) Pulse Ox 97 O2 Delivery Nasal Cannula O2 Flow Rate 2.00 Capillary Refill : Height, Weight, BMI Height: '" Weight: lbs. oz. kg; 23.47 BMI Method: General Appearance: Other (chronically ill ) HEENT: PERRL/EOMI Respiratory: Decreased Breath Sounds; No Respiratory Distress Cardiovascular: Regular Rate, Rhythm, Other (2+ gillian lower edema, 2+ rue edema ) Extremity: Pedal Edema, Swelling Neurologic/Psychiatric: Alert, Oriented x3, No Motor/Sensory Deficits, Normal Mood/Affect Progress/Results/Core Measures Suspected Sepsis SIRS Temperature: Pulse: Respiratory Rate: Laboratory Tests 12/22/22 12:02: White Blood Count 26.4H Blood Pressure / Mean: Laboratory Tests 12/22/22 12:02: Creatinine 6.64H, Platelet Count 234, Total Bilirubin 0.4 Results/Orders Lab Results Laboratory Tests Test 12/22/22 12:02 Range/Units White Blood Count 26.4 H 4.3-11.0 10^3/uL Red Blood Count 3.11 L 4.30-5.52 10^6/uL Hemoglobin 9.8 L 13.3-17.7 g/dL Hematocrit 29 L 40-54 % Mean Corpuscular Volume 93 80-99 fL Mean Corpuscular Hemoglobin 32 25-34 pg Mean Corpuscular Hemoglobin Concent 34 32-36 g/dL Red Cell Distribution Width 13.3 10.0-14.5 % Platelet Count 234 130-400 10^3/uL Mean Platelet Volume 10.5 9.0-12.2 fL Immature Granulocyte % (Auto) 2 % Neutrophils (%) (Auto) 93 H 42-75 % Lymphocytes (%) (Auto) 2 L 12-44 % Monocytes (%) (Auto) 3 0-12 % Eosinophils (%) (Auto) 0 0-10 % Basophils (%) (Auto) 0 0-10 % Neutrophils # (Auto) 24.7 H 1.8-7.8 10^3/uL Lymphocytes # (Auto) 0.5 L 1.0-4.0 10^3/uL Monocytes # (Auto) 0.8 0.0-1.0 10^3/uL Eosinophils # (Auto) 0.0 0.0-0.3 10^3/uL Basophils # (Auto) 0.0 0.0-0.1 10^3/uL Immature Granulocyte # (Auto) 0.4 H 0.0-0.1 10^3/uL Neutrophils % (Manual) 95 % Lymphocytes % (Manual) 2 % Monocytes % (Manual) 3 % Sodium Level 125 *L 135-145 MMOL/L Potassium Level 4.3 3.6-5.0 MMOL/L Chloride Level 85 L 98-107 MMOL/L Carbon Dioxide Level 20 L 21-32 MMOL/L Anion Gap 20 H 5-14 MMOL/L Blood Urea Nitrogen 99 H 7-18 MG/DL Creatinine 6.64 H 0.60-1.30 MG/DL Estimat Glomerular Filtration Rate 8 BUN/Creatinine Ratio 15 Glucose Level 169 H 70-105 MG/DL Calcium Level 9.4 8.5-10.1 MG/DL Corrected Calcium 10.0 8.5-10.1 MG/DL Magnesium Level 1.3 L 1.6-2.4 MG/DL Total Bilirubin 0.4 0.1-1.0 MG/DL Aspartate Amino Transf (AST/SGOT) 35 H 5-34 U/L Alanine Aminotransferase (ALT/SGPT) 42 0-55 U/L Alkaline Phosphatase 194 H 40-136 U/L Pro-B-Type Natriuretic Peptide 08344.0 H <450.0 PG/ML Total Protein 5.7 L 6.4-8.2 GM/DL Albumin 3.2 3.2-4.5 GM/DL Influenza Type A (RT-PCR) Not Detected Not Detecte Influenza Type B (RT-PCR) Not Detected Not Detecte SARS-CoV-2 RNA (RT-PCR) Not Detected Not Detecte My Orders Orders - CATIE SANCHEZ DO Cbc With Automated Diff (12/22/22 12:03) Comprehensive Metabolic Panel (12/22/22 12:03) Magnesium (12/22/22 12:03) Influenza A And B By Pcr (12/22/22 12:03) Covid 19 Inhouse Test (12/22/22 12:03) Chest Pa/Lat (2 View) (12/22/22 12:03) Probnp Fs (12/22/22 12:05) Manual Differential (12/22/22 12:02) Vital Signs/I&O 12/22/22 12/22/22 11:56 11:56 Temp 36.9 Pulse 90 Resp 18 B/P (MAP) 140/66 (90) Pulse Ox 97 O2 Delivery Nasal Cannula Room Air O2 Flow Rate 2.00 Capillary Refill : Progress Note : Progress Note Patient's diagnostic studies were ordered reviewed and interpreted by me. Patient's labs do show significant abnormalities however most of them appear to be close to his baseline when compared to prior labs patient does have elevated white count likely reactive due to recent steroid use. Patient's hyponatremia likely due to his fluid overload. Patient is chronic dialysis patient and is represented as much by his creatinine and other electrolyte abnormalities. Patient's chest x-ray was reviewed and shows no acute abnormalities with final interpretation per radiology report. Patient's negative for COVID. His biggest complaint was just generalized fatigue and a new cough. Patient does have a history of chronic COPD, CHF. He just finished a course of both antibiotics and steroids so these would not be indicated at this time. Patient oxygen throughout his stay on his baseline 2 L was in the upper 90s. He is not showing any signs of distress, no reports of fevers or other illness related complaints. Had a long discussion with him that most of his complaints are chronic and that from the emergency room standpoint there is not a lot that we can do to help alleviate these. I will provide him Eduardo [place] to help with his cough to maybe give him some relief. Recommend he follow-up with his primary care provider for further outpatient options and evaluation. He is at increased risk for morbidity mortality based on his social determinants of health and chronic medical problems. He was stable and discharged home. Diagnostic Imaging Diagonstic Imaging: Xray Plain Films/CT/US/NM/MRI: chest Comments Date of Exam:12/22/22 CHEST PA/LAT (2 VIEW) INDICATION: Shortness of breath and cough. PA and lateral chest obtained at 1217 p.m. There is cardiomegaly. There is mild central vascular congestion but no focal infiltrate. There is no pneumothorax or pleural fluid. There is free air below the hemidiaphragms which can be explained with the patient's peritoneal dialysis. IMPRESSION: Borderline cardiomegaly with central vascular congestion. No pneumothorax or pleural fluid or focal infiltrate. Free air is present which can be explained with the patient's peritoneal dialysis. Departure Impression Primary Impression: Chronic cough Additional Impressions: COPD (chronic obstructive pulmonary disease) Qualified Codes: J44.9 - Chronic obstructive pulmonary disease, unspecified Dependence on peritoneal dialysis Chronic CHF (congestive heart failure) Qualified Codes: I50.9 - Heart failure, unspecified Disposition: 01 HOME, SELF-CARE Condition: Stable Departure-Patient Inst. Referrals: JULIETTE ZAFAR MD (PCP/Family) Primary Care Physician Patient Instructions: Cough, Adult ED, Heart Failure Exercise Guide Add. Discharge Instructions: follow up with your primary care provider All discharge instructions reviewed with patient and/or family. Voiced understanding. Scripts Benzonatate (TESSALON PERLES) 100 Mg Capsule 100 MG PO TID PRN for COUGH, #30 CAP Prov: CATIE SANCHEZ DO 12/22/22 CATIE SANCHEZ DO Dec 22, 2022 12:02
[2022-12-22 12:10] LABS: BASOPHILS % (AUTO) 0 % (0-10); EOSINOPHILS % (AUTO) 0 % (0-10); HEMATOCRIT 29 % (40-54); HEMOGLOBIN 9.8 g/dL (13.3-17.7); LYMPHOCYTES # (AUTO) 0.5 10^3/uL (1.0-4.0); LYMPHOCYTES % (AUTO) 2 % (12-44); MEAN CORPUSCULAR HEMOGLOBIN 32 pg (25-34); MEAN CORPUSCULAR HGB CONC 34 g/dL (32-36); MEAN CORPUSCULAR VOLUME 93 fL (80-99); MEAN PLATELET VOLUME 10.5 fL (9.0-12.2); MONOCYTES # (AUTO) 0.8 10^3/uL (0.0-1.0); MONOCYTES % (AUTO) 3 % (0-12); NEUTROPHILS # (AUTO) 24.7 10^3/uL (1.8-7.8); NEUTROPHILS % (AUTO) 93 % (42-75); PLATELET COUNT 234 10^3/uL (130-400); WHITE BLOOD COUNT 26.4 10^3/uL (4.3-11.0)
[2022-12-22 12:26] LABS: POTASSIUM 4.3 MMOL/L (3.6-5.0)
[2022-12-22 12:27] LABS: ALBUMIN 3.2 GM/DL (3.2-4.5); BILIRUBIN,TOTAL 0.4 MG/DL (0.1-1.0); CALCIUM 9.4 MG/DL (8.5-10.1); CREATININE SERUM 6.64 MG/DL (0.60-1.30); MAGNESIUM 1.3 MG/DL (1.6-2.4); TOTAL PROTEIN 5.7 GM/DL (6.4-8.2)
--- NOTE | 2022-12-22 12:32 | Diagnostic Imaging Report ---
INDICATION: Shortness of breath and cough. PA and lateral chest obtained at 1217 p.m. There is cardiomegaly. There is mild central vascular congestion but no focal infiltrate. There is no pneumothorax or pleural fluid. There is free air below the hemidiaphragms which can be explained with the patient's peritoneal dialysis. IMPRESSION: Borderline cardiomegaly with central vascular congestion. No pneumothorax or pleural fluid or focal infiltrate. Free air is present which can be explained with the patient's peritoneal dialysis. Dictated by: Dictated on workstation # [id number]
[2022-12-22 12:34] LABS: LYMPHOCYTES % (MANUAL) 2 %; MONOCYTES % (MANUAL) 3 %; NEUTROPHILS % (MANUAL) 95 %
[2022-12-22] MEDS ORDERED: BENZ100C18 PO (13:03)
[2022-12-22 13:15] VITALS: BP 123/69
== END 2022-12-22 13:15 | disposition home or self-care (01) ==
LOC: EDUNIT# 11:51 → ER FS 11:52
DX: J44.9 Chronic obstructive pulmonary disease, unspecified (principal); R05.3 Chronic cough; I13.2 Hypertensive heart and chronic kidney disease with heart failure and with stage 5 chronic kidney disease, or end stage renal disease; E11.22 Type 2 diabetes mellitus with diabetic chronic kidney disease; I50.9 Heart failure, unspecified; N18.6 End stage renal disease; Z99.2 Dependence on renal dialysis; Z20.822 Contact with and (suspected) exposure to COVID-19
CPT/HCPCS: 36415; 71046; 80053; 83735; 83880; 85007; 85027; 87636